=== PATIENT | female | born 1980 | race Caucasian/White ===

== ENCOUNTER 2022-10-14 22:45 | Emergency (ER) | payer OTHER, SELFPAY ==
[2022-10-14 22:57] VITALS: BP 133/79; PULSE 78; RESP 20; O2SAT 100; BMI 24.0
[2022-10-14 23:17] VITALS: BP 113/66; PULSE 65; RESP 15; O2SAT 100
[2022-10-14 23:30] VITALS: BP 107/69; PULSE 75; O2SAT 97
--- NOTE | 2022-10-14 23:33 | DI.RAD.S_ITS ---
PROCEDURE: XR KNEE LT 3V INDICATIONS: Fall on to board with nail TECHNIQUE: 3 views of the knee were acquired. COMPARISON: None. FINDINGS: Bones: No fractures or dislocations. No suspicious bony lesions. Soft tissues: There is a minimal joint effusion. No radiopaque foreign bodies or soft tissue gas. No suspicious soft tissue calcifications. IMPRESSION: 1. No fracture or radiopaque foreign bodies. Dictated by: Zac Meyers M.D. on 10/15/2022 at 0:29 Approved by: Zac Meyers M.D. on 10/15/2022 at 0:34
[2022-10-14] MEDS: TET,DIPH,PERTUSS(ACELL),VAC/PF 0.5 ML SYRINGE IM (23:52)
[2022-10-15] VITALS: BP 105/60; PULSE 74; O2SAT 96
[2022-10-15 00:30] VITALS: BP 105/65; PULSE 71; O2SAT 97
[2022-10-15 01:00] VITALS: BP 102/58; PULSE 86; O2SAT 96
--- NOTE | 2022-10-15 01:21 | ED_ITS ---
HPI - Wound/Laceration General Chief Complaint: Wound/Laceration Stated Complaint: lt knee injury Time Seen by Provider: 10/15/22 01:17 Source: patient and RN notes reviewed Mode of arrival: Ambulatory Limitations: no limitations History of Present Illness HPI narrative: This is a 42-year-old female who denies major medical issues, patient states that she fell on a 2 x 4 she is unsure if there was a nail sticking out of it or not but it was somewhat dirty lacerating her left knee. Patient states it did not bleed initially but did after she got out of the car and walked into the emergency department. She denies any other numbness, tingling or weakness. Denies any other injuries. Patient states her tetanus is not up-to-date. She denies any known drug allergies. Denies tobacco, occasional alcohol, no i llicit. Related Data Previous Rx's Medication Instructions Recorded cephalexin 500 mg capsule 500 mg PO Q6H 7 days #28 caps 10/15/22 Allergies Allergy/AdvReac Type Severity Reaction Status Date / Time No Known Drug Allergies Allergy Verified 10/14/22 23:01 Review of Systems Review of Systems ROS Unobtainable: All systems reviewed & are unremarkable except as noted in HPI and below Patient History Social History Smoking Status: Never smoker Smoking Status: Never smoker alcohol intake frequency: holidays/special occasions only Substance Use Type: does not use Exam Narrative Exam Narrative: GENERAL: Alert and oriented x three, female in mild distress HEENT: Head normocephalic, atraumatic, EOMI, pupils reactive, face symmetric, moist mucous membranes NECK: Supple, full range of motion EXTREMITIES: Normal range of motion, no clubbing or edema. Neurovascularly intact. Patient has 2+ dorsalis pedis normal sensation throughout cap refill less than 2 seconds in all 5 toes. No bony tenderness. On examination patient has a v-shaped stellate laceration just distal to the left knee in the soft tis gissel does not appear to go deeper than soft tissue with no obvious tendon for ligamentous involvement even with range of motion. NEUROLOGICAL: Cranial nerves II through XII grossly intact. Moving all extremities SKIN: Warm, dry, no petechiae, no rashes or lesions. Initial Vital Signs Initial Vital Signs: Vital Signs Pulse Rate 78 10/14/22 22:57 Respiratory Rate 20 10/14/22 22:57 Blood Pressure 133/79 10/14/22 22:57 Pulse Oximetry 100 10/14/22 22:57 Oxygen Delivery Method 10/14/22 22:57 Procedures Laceration Repair Laceration 1: Time of procedure: 02:36 Site: lower extremity Side (If applicable): left Size (cm): 4.5 Description: stellate and irregular Depth: simple, single layer Local Anesthetic: lidocaine 1% Amount of anesthesia used (mL): 5 Pre-repair: wound explored, irrigated extensively and deep structures intact Skin layer closed with: nylon Skin layer suture size: 4-0 Number of sutures: 8 Technique: simple, interrupted Course Orders Ordered: Discontinued Medications Diphtheria/Tetanus/Acell Pertussis (Tet,Diph,Pertuss(Acell),Vac/Pf 0.5 Ml Syringe) 0.5 ml IM .ONCE ONE Stop: 10/14/22 23:35 Last Admin: 10/14/22 23:52 Dose: 0.5 ml Documented By: RB Lidocaine HCl (Lidocaine 2% Inj Sdv) 10 ml INJ INTRA-OP ONE Stop: 10/15/22 01:22 Last Admin: 10/15/22 02:26 Dose: 10 ml Documented By: OW Vital Signs Vital signs: Vital Signs - 8 hr 10/14/22 22:57 10/14/22 23:17 10/14/22 23:17 Pulse Rate 78 65 Respiratory Rate 20 15 Blood Pressure 133/79 113/66 Pulse Oximetry 100 100 Oxygen Delivery Method Room Air 10/14/22 23:30 10/14/22 23:30 10/15/22 00:00 Pulse Rate 75 Respiratory Rate Blood Pressure 107/69 105/60 Pulse Oximetry 97 Oxygen Delivery Method 10/15/22 00:00 10/15/22 00:30 10/15/22 00:30 Pulse Rate 74 71 Respiratory Rate Blood Pressure 105/65 Pulse Oximetry 96 97 Oxygen Delivery Method 10/15/22 01:00 10/15/22 01:00 10/15/22 01:30 Pulse Rate 86 Respiratory Rate Blood Pressure 102/58 L 100/63 Pulse Oximetry 96 Oxygen Delivery Method 10/15/22 01:30 Pulse Rate 77 Respiratory Rate Blood Pressure Pulse Oximetry 97 Oxygen Delivery Method MDM - Wound/Laceration Imaging Data Extremity x-ray #1: Radiologist's Impression: Close Knee X-Ray (Signed) Zac Meyers - 10/14/22 Launch?[address] [address] XRay Report Signed Patient: Joan Agarwal MR#: [id number] : 1980 Acct:[id number] Age/Sex: 42 / F Date of Service: 10/14/22 Loc: ED Accession Number: [id number] ?? Procedure: XR knee LT 3V Ordering Provider: Bhavana Whyte D.O. PROCEDURE:? XR KNEE LT 3V ? INDICATIONS:? Fall on to board with nail ? TECHNIQUE:? 3 views of the knee were acquired.? ? COMPARISON:? None. ? FINDINGS:? ? Bones:? No fractures or dislocations.? No suspicious bony lesions.? ? Soft tissues:? There is a minimal joint effusion.? No radiopaque foreign bodies or soft tissue gas.? No suspicious soft tissue calcifications.? ? ? IMPRESSION:? ? 1. No fracture or radiopaque foreign bodies. ? ? Dictated by: Zac Meyers M.D. on 10/15/2022 at 0:29 ? ? Approved by: Zac Meyers M.D. on 10/15/2022 at 0:34?? MDM Narrative Medical decision making narrative: This is a 42-year-old female who comes to the emergency department with complaint of laceration her left knee tetanus was updated, does not appear to have injury to the deeper structures, x-rays obtained as there is possibly a nail in the board no foreign bodies appreciated. Laceration was irrigated further evaluation numbing, patient has laceration in the subcutaneous tissue but deep structures appear intact there does not appear to be any ligament, or joint involvement.. Patient states the board may have been somewhat dirty so was given prescription for antibiotic. Patient placed in knee immobilizer to encourage any to stay straight so as not to pull out her sutures after repair. Patient tolerated well, tetanus was updated. We did discuss return precautions all questions answered. Discharge Plan Departure Patient Disposition: Home Clinical Impression: Laceration of knee, left Instructions: DI for Laceration Repair Activity Restrictions/Additional Instructions: Please follow-up to have your sutures removed in 7-10 days. Because there over the joint of your knee I would recommend closer to 10 days unless fully healed at 7 days. Antibiotic prescription was printed and is included in your discharge paperwork. You may use a knee immobilizer to remind yourself not to bend your knee you want to keep it straight while it is healing so that you do not pull the sutures out. Wound Care: Keep wound(s) clean and dry. Wash daily with soap and water only and pat dry. Do not use over the counter products (alcohol or peroxide)on the wounds unless instructed by a physician. If wound condition worsens (increased/expanding redness, developing fluid blisters, or worsening pain), either contact your doctor for an urgent re- assessment , or return to the Emergency Department. Return to the Emergency Department for any new or worsening symptoms. Return to the ED, urgent care, or vist a primary care doctor for removal or suture or zehra Return if fever greater than 100.4 Fahrenheit, increased swelling, increasing pain or worsening symptoms such as increased discharge or spreading redness. Prescriptions: New cephalexin 500 mg capsule 500 mg PO Q6H 7 Days Qty: 28 0RF Visit Report Forms: Patient Portal/API
[2022-10-15 01:30] VITALS: BP 100/63; PULSE 77; O2SAT 97
[2022-10-15 02:00] VITALS: BP 104/67; PULSE 73; O2SAT 97
[2022-10-15] MEDS: LIDOCAINE 2% INJ SDV 10 ML INJ (02:26)
[2022-10-15 02:30] VITALS: BP 110/81; PULSE 74; RESP 16; O2SAT 100
== END 2022-10-15 02:47 | disposition home or self-care (01) ==
PROVIDERS: Emergency Provider Emergency Medicine
DX: S81.012A Laceration without foreign body, left knee, initial encounter (principal); W18.30XA Fall on same level, unspecified, initial encounter; Z23 Encounter for immunization
CPT/HCPCS: 12002; 73562; 90471; 99283; 99284; 90715